=== PATIENT | female | born 1945 | race American Indian/Alaskan Native ===

== ENCOUNTER 2019-05-18 07:39 | Observation (INO) | payer MEDICARE ==
--- NOTE | 2019-05-18 08:01 | Cat Scan Report ---
CT HEAD WITHOUT CONTRAST INDICATION / CLINICAL INFORMATION: neuro deficits <6hrs or sx present upon awakening. Stroke protoco l. TECHNIQUE: Axial imaging performed from the skull apex through the skull base without the use of cont rast. Sagittal and coronal reformatted images. All CT scans at this location are performed using CT dose reduction for ALARA by means of automated exposure control. COMPARISON: None available. FINDINGS: CEREBRAL PARENCHYMA: No significant abnormality. No acute territorial infarct. Mild age appropriate v olume loss is noted. HEMORRHAGE: None. EXTRA-AXIAL SPACES: Normal in size and morphology for the patient's age. VENTRICULAR SYSTEM: Normal in size and morphology for the patient's age. MIDLINE SHIFT OR HERNIATION: None. CEREBELLUM / BRAINSTEM: No significant abnormality. CALVARIUM: No significant abnormality. ORBITS: Normal as visualized. PARANASAL SINUSES / MASTOID AIR CELLS: Normal as visualized. SOFT TISSUES of HEAD: No significant abnormality. ADDITIONAL FINDINGS: None. IMPRESSION: No acute intracranial abnormality. These findings were discussed with Dr. Lane in the emergency department at 0756 hours EST. Signer Name: Home Moon Jr, MD Signed: 05/18/2019 7:56 AM Workstation Name: [id number]
[2019-05-18 08:23] LABS: Basophils # (Auto) 0.1 K/mm3 (0.0-0.1); Eosinophils # (Auto) 0.1 K/mm3 (0.0-0.4); Hematocrit 42.4 % (30.3-42.9); Lymphocytes # (Auto) 1.9 K/mm3 (1.2-5.4); Lymphocytes % (Auto) 31.8 % (13.4-35.0); Mean Corpuscular HGB Conc 33 % (30-34); Mean Corpuscular Volume 82 fl (79-97); Monocytes # (Auto) 0.5 K/mm3 (0.0-0.8); Monocytes % (Auto) 8.4 % (0.0-7.3); Platelet Count 233 K/mm3 (140-440); Red Blood Count 5.16 M/mm3 (3.65-5.03); Red Cell Distribution Width 15.4 % (13.2-15.2)
[2019-05-18] MEDS ORDERED: LORazepam 2 MG/ML VIAL IV ONE ×2 (08:29→09:30)
[2019-05-18 08:37] LABS: INR 0.97 (0.87-1.13)
[2019-05-18 08:39] LABS: Partial Thromboplastin Time 33.2 Sec. (24.2-36.6)
--- NOTE | 2019-05-18 08:59 | Emergency Department Report ---
HPI - General Chief Complaint: Neuro Symptoms/Deficit Time Seen by Provider: 05/18/19 07:45 - HPI HPI: 73-year-old -Irish female presents to the emergency department via EMS from home after the patient woke up this morning altered and agitated. The patient does not have any known past medical history but also does not see a primary care physician and "she never sees doctors." Her daughter is currently at bedside providing information, as did EMS. The patient is usually awake and oriented, AAO x3, conversive, and fully independent. She was this way as of when she went to sleep last night but woke up altered and agitated. She keeps taking her clothes off. She is nonverbal. She does follow some commands but displays some generalized weakness. A code stroke was initiated. ED Past Medical Hx - Past Medical History Previous Medical History?: No - Surgical History Past Surgical History?: No - Social History Smoking Status: Current Every Day Smoker - Medications Home Medications: Home Medications Medication Instructions Recorded Confirmed Last Taken Type No Known Home Medications [No 05/18/19 05/18/19 Unknown History Reported Home Medications] ED Review of Systems ROS: Stated complaint: STROKE CALL Other details as noted in HPI Comment: Unobtainable due to pts medical conditions Physical Exam - Physical Exam Vital Signs: Vital Signs 05/18/19 08:38 Pulse Rate 71 Respiratory 18 Rate Blood Pressure 124/61 [Right] O2 Sat by Pulse 96 Oximetry Physical Exam: GENERAL: Patient is ill-appearing and confused. HENT: Normocephalic. Atraumatic. Patient has moist mucous membranes. EYES: Extraocular motions are intact. Pupils equal reactive to light bilaterally. NECK: Supple. Trachea is midline. CHEST/LUNGS: Clear to auscultation. There is no respiratory distress noted. HEART/CARDIOVASCULAR: Regular. There is no tachycardia. There is no murmur. ABDOMEN: Abdomen is soft, nontender. Patient has normal bowel sounds. There is no abdominal distention. SKIN: Skin is warm and dry. NEURO: Patient is awake but nonverbal. She follows some commands. Withdraws from painful stimuli. No obvious facial asymmetry. MUSCULOSKELETAL: There is no tenderness or deformity. There is no evidence of acute injury. ED Course Vital Signs 05/18/19 08:38 Pulse Rate 71 Respiratory 18 Rate Blood Pressure 124/61 [Right] O2 Sat by Pulse 96 Oximetry - Consultations Consultation #1: The patient was seen by the telemedicine neurologist, Dr. Johnston, immediately after she returned from CT scan of the head without contrast. He agrees that th e patient does not appear to be a TPA candidate as she woke up with the symptoms and there is no last known well time. He has recommended CT angiography of the head and neck to be performed and if there is no sign of any large vessel occlusion, then the patient should be admitted for further metabolic or CVA work-up. 05/18/19 08:59 ED Medical Decision Making - Lab Data Result diagrams: 05/18/19 08:03 05/18/19 09:20 - EKG Data -: EKG Interpreted by De EKG shows normal: sinus rhythm, axis, intervals, QRS complexes, ST-T waves Rate: normal - EKG Data When compared to previous EKG there are: previous EKG unavailable Interpretation: normal EKG - Radiology Data Radiology results: report reviewed CT HEAD WITHOUT CONTRAST INDICATION / CLINICAL INFORMATION: neuro deficits <6hrs or sx present upon awakening. Stroke protocol. TECHNIQUE: Axial imaging performed from the skull apex through the skull base without the use of contrast. Sagittal and coronal reformatted images. All CT scans at this location are performed using CT dose reduction for ALARA by means of automated exposure control. COMPARISON: None available. FINDINGS: CEREBRAL PARENCHYMA: No significant abnormality. No acute territorial infarct. Mild age appropriate volume loss is noted. HEMORRHAGE: None. EXTRA-AXIAL SPACES: Normal in size and morphology for the patient's age. VENTRICULAR SYSTEM: Normal in size and morphology for the patient's age. MIDLINE SHIFT OR HERNIATION: None. CEREBELLUM / BRAINSTEM: No significant abnormality. CALVARIUM: No significant abnormality. ORBITS: Normal as visualized. PARANASAL SINUSES / MASTOID AIR CELLS: Normal as visualized. SOFT TISSUES of HEAD: No significant abnormality. ADDITIONAL FINDINGS: None. IMPRESSION: No acute intracranial abnormality. CT angio head INDICATION / CLINICAL INFORMATION: 73 years Female; CVA. TECHNIQUE: Thin cut axial images obtained through the head during IV bolus contrast administration. Sagittal, coronal, and 3 plane MIP reconstructions performed by the technologist. NASCET type criteria used evaluate stenoses. Automated exposure control utilized for radiation reduction purposes. COMPARISON: None available. FINDINGS: INTERNAL CAROTID ARTERIES: Focal area of narrowing is seen in the anterior genu of the cavernous portion of the right internal carotid artery-borderline hemodynamically significant. Mild narrowing is seen in the carotid canal portions of both internal carotid arteries-not hemodynamically significant Otherwise, no significant narrowing appreciated. VERTEBROBASILAR SYSTEM: No significant narrowing appreciated. DISTAL BRANCHES: Distal branches of the anterior, middle, and posterior cerebral arteries are fairly symmetric in appearance and number. No significant areas of narrowing appreciated. ANEURYSM: None identified. ADDITIONAL FINDINGS: Remainder of the surrounding soft tissues are grossly normal. IMPRESSION: Areas of narrowing identified, as described above. - Medical Decision Making This patient presents to the emergency department as a code stroke. Essentially she was normal when she went to bed and woke up confused, agitated and at times combative. During my initial examination the patient is awake and will follow some commands but is nonverbal and does appear confused. She had a CT scan of the head without contrast that did not show any bleed, shift, mass, ischemia, or any other acute process. Patient was seen by the telemedicine neurologist who agrees that the patient is outside of the TPA window but a CT angiography of the head and neck was recommended. The patient required 2 different doses of Ativan, and a dose of Geodon, in order to get the CT angiography completed. There was some luminal narrowing seen on the CT angiography of the head but no obvious thrombus or large vessel occlusion. The patient's labs have been unremarkable including CBC, metabolic panel, ammonia, TSH, urinalysis to show any etiology of the patient's symptoms. Patient will be admitted to the hospital for further evaluation and treatment and was accepted for admission by the hospitalist, Dr. Garber. - Differential Diagnosis CVA, TIA, hyperammonemia, metabolic encephalopathy Critical Care Time: Yes Critical care time in (mins) excluding proc time.: 35 Critical care attestation.: If time is entered above; I have spent that time in minutes in the direct care of this critically ill patient, excluding procedure time. Due to the immediate potential for life-threatening deterioration due to underlying neurologic and/or metabolic condition, I spent 35 minutes of critical care time with the patient. Critical care time was spent on this patient in doing her initial evaluation, multiple re-evaluations, ordering and interpretation of labs and imaging, d iscussion with the telemedicine neurologist. Critical Care Time: 35 minutes ED Disposition Clinical Impression: CVA (cerebral vascular accident) Qualifiers: CVA mechanism: unspecified Qualified Code(s): I63.9 - Cerebral infarction, unspecified Altered mental status Qualifiers: Altered mental status type: unspecified Qualified Code(s): R41.82 - Altered mental status, unspecified Disposition: DC-09 OP ADMIT IP TO THIS HOSP Is pt being admited?: Yes Condition: Serious Time of Disposition: 14:05
--- NOTE | 2019-05-18 09:15 | Emergency Department Report ---
ED Neuro Deficit HPI - General Chief Complaint: Neuro Symptoms/Deficit Stated Complaint: STROKE CALL Time Seen by Provider: 05/18/19 07:45 Source: EMS Mode of arrival: Stretcher Limitations: Other - History of Present Illness Initial Comments: [facility] Date of Service: 05/18/2019 07:40:17 Impression: RO Acute Ischemic Stroke Comments: The patient was last normal at yesterday per EMS report. She was confused, and ataxic on wakeup. She is aphasic on examination and writhing. Mechanism of Stroke: Possible Thromboembolic Metrics: Last Known Well: 05/17/2019 21:00:00 [facility] Notification Time: 05/18/2019 07:40:17 Arrival Time: 05/18/2019 07:40:17 Stamp Time: 05/18/2019 07:40:17 Time First Login Attempt: 05/18/2019 07:43:10 Video Start Time: 05/18/2019 07:43:10 Symptoms: 73 year old, female NIHSS Start Assessment Time: 05/18/2019 07:43:10 Patient is not a candidate for tPA. Patient was not deemed candidate for tPA thrombolytics because of Last Well Known Above 4.[address] head showed no acute hemorrhage or acute core infarct. Clinical Presentation is Suggestive of Large Vessel Occlusive Disease, Recommendations are as Follows ED Physician notified of diagnostic impression and management plan on 05/18/2019 08:38:26 Our recommendations are outlined below. Recommendations: Activate Stroke Protocol Admission/Order Set Stroke/Telemetry Floor Neuro Checks Bedside Swallow Eval DVT Prophylaxis IV Fluids, Normal Saline Head of Bed Below 30 Degrees Euglycemia and Avoid Hyperthermia (PRN Acetaminophen) Lipid Panel to Be Obtained, if Not Done in the Last Three Months Therapies: Physical Therapy, Occupational Therapy, Speech Therapy Assessment When Applicable Dysphaghia Screen: Swallow Evaluation, Bedside NPO Until Swallow Evaluation History of Present Illness: Patient was brought by EMS for symptoms of 73 year old, female well last night, and curled up in a position, and unable to ambulate and position. She does not use a doctor. No medical condition, she does smoke. BS 151 with EMS. BP is elevated. CT head showed no acute hemorrhage or acute core infarct. Last seen normal was beyond 4.5 hours of presentation. There is no history of hemorrhagic complications or intracranial hemorrhage. There is no history of Recent Anticoagulants. There is no history of recent major surgery. There is no history of recent stroke. Examination: 1A: Level of Consciousness - Alert; keenly responsive + 0 1B: Ask Month and Age - Both Questions Right + 0 1C: Blink Eyes & Squeeze Hands - Performs Both Tasks + 0 2: Test Horizontal Extraocular Movements - Normal + 0 3: Test Visual Ramsey - No Visual Loss + 0 4: Test Facial Palsy (Use Grimace if Obtunded) - Normal symmetry + 0 5A: Test Left Arm Motor Drift - No Drift for 10 Seconds + 0 5B: Test Right Arm Motor Drift - No Drift for 10 Seconds + 0 6A: Test Left Leg Motor Drift - No Drift for 5 Seconds + 0 6B: Test Right Leg Motor Drift - No Drift for 5 Seconds + 0 7: Test Limb Ataxia (FNF/Heel-Peguero) - No Ataxia + 0 8: Test Sensation - Normal; No sensory loss + 0 9: Test Language/Aphasia - Normal; No aphasia + 0 10: Test Dysarthria - Normal + 0 11: Test Extinction/Inattention - No abnormality + 0 NIHSS Score: 0 Patient was informed the Neurology Consult would happen via TeleHealth consult by way of interactive audio and video telecommunications and consented to receiving care in this manner. Due to the immediate potential for life-threatening deterioration due to underlying acute neurologic illness, I spent 35 minutes providing critical care. This time includes time for face to face visit via telemedicine, review of [facility] records, imaging studies and discussion of findings with providers, the patient and/or family. Dr Rajinder Johnston [facility] Case [id number] - Related Data Home Medications: Home Medications Medication Instructions Recorded Confirmed Last Taken No Known Home Medications [No 05/18/19 05/18/19 Unknown Reported Home Medications] Allergies/Adverse Reactions: Allergies Allergy/AdvReac Type Severity Reaction Status Date / Time No Known Allergies Allergy Unverified 05/18/19 07:43 ED Review of Systems ROS: Stated complaint: STROKE CALL Other details as noted in HPI ED Past Medical Hx - Past Medical History Previous Medical History?: No - Surgical History Past Surgical History?: No - Social History Smoking Status: Current Every Day Smoker - Medications Home Medications: Home Medications Medication Instructions Recorded Confirmed Last Taken Type No Known Home Medications [No 05/18/19 05/18/19 Unknown History Reported Home Medications] ED Neuro Physical Exam - General Limitations: Other ED Course Vital Signs 05/18/19 08:38 Pulse Rate 71 Respiratory 18 Rate Blood Pressure 124/61 [Right] O2 Sat by Pulse 96 Oximetry - Lab Data Result diagrams: 05/18/19 08:03 Lab Results 05/18/19 05/18/19 05/18/19 Range/Units 08:02 08:02 08:02 WBC (4.5-11.0) K/mm3 RBC (3.65-5.03) M/mm3 Hgb (10.1-14.3) gm/dl Hct (30.3-42.9) % MCV (79-97) fl MCH (28-32) pg MCHC (30-34) % RDW (13.2-15.2) % Plt Count (140-440) K/mm3 Lymph % (Auto) (13.4-35.0) % [place] % (Auto) (0.0-7.3) % Eos % (Auto) (0.0-4.3) % Baso % (Auto) (0.0-1.8) % Lymph # (1.2-5.4) K/mm3 [place] # (0.0-0.8) K/mm3 Eos # (0.0-0.4) K/mm3 Baso # (0.0-0.1) K/mm3 Seg Neutrophils % (40.0-70.0) % Seg Neutrophils # (1.8-7.7) K/mm3 PT (12.2-14.9) Sec. INR (0.87-1.13) APTT (24.2-36.6) Sec. Thrombin Time (15.1-19.6) Sec. Lactic Acid 1.90 (0.7-2.0) mmol/L Ammonia 24.0 L (25-60) umol/L TSH 3.770 (0.270-4.200) mlU/mL Plasma/Serum Alcohol (0-0.07) % 05/18/19 05/18/19 05/18/19 Range/Units 08:02 08:03 08:03 WBC 6.0 (4.5-11.0) K/mm3 RBC 5.16 H (3.65-5.03) M/mm3 Hgb 14.0 (10.1-14.3) gm/dl Hct 42.4 (30.3-42.9) % MCV 82 (79-97) fl MCH 27 L (28-32) pg MCHC 33 (30-34) % RDW 15.4 H (13.2-15.2) % Plt Count 233 (140-440) K/mm3 Lymph % (Auto) 31.8 (13.4-35.0) % [place] % (Auto) 8.4 H (0.0-7.3) % Eos % (Auto) 2.0 (0.0-4.3) % Baso % (Auto) 1.0 (0.0-1.8) % Lymph # 1.9 (1.2-5.4) K/mm3 [place]ake # 0.5 (0.0-0.8) K/mm3 Eos # 0.1 (0.0-0.4) K/mm3 Baso # 0.1 (0.0-0.1) K/mm3 Seg Neutrophils % 56.8 (40.0-70.0) % Seg Neutrophils # 3.4 (1.8-7.7) K/mm3 PT 13.0 (12.2-14.9) Sec. INR 0.97 (0.87-1.13) APTT 33.2 (24.2-36.6) Sec. Thrombin Time (15.1-19.6) Sec. Lactic Acid (0.7-2.0) mmol/L Ammonia (25-60) umol/L TSH (0.270-4.200) mlU/mL Plasma/Serum Alcohol < 0.01 (0-0.07) % 05/18/19 Range/Units 08:03 WBC (4.5-11.0) K/mm3 RBC (3.65-5.03) M/mm3 Hgb (10.1-14.3) gm/dl Hct (30.3-42.9) % MCV (79-97) fl MCH (28-32) pg MCHC (30-34) % RDW (13.2-15.2) % Plt Count (140-440) K/mm3 Lymph % (Auto) (13.4-35.0) % [place] % (Auto) (0.0-7.3) % Eos % (Auto) (0.0-4.3) % Baso % (Auto) (0.0-1.8) % Lymph # (1.2-5.4) K/mm3 [place] # (0.0-0.8) K/mm3 Eos # (0.0-0.4) K/mm3 Baso # (0.0-0.1) K/mm3 Seg Neutrophils % (40.0-70.0) % Seg Neutrophils # (1.8-7.7) K/mm3 PT (12.2-14.9) Sec. INR (0.87-1.13) APTT (24.2-36.6) Sec. Thrombin Time 17.4 (15.1-19.6) Sec. Lactic Acid (0.7-2.0) mmol/L Ammonia (25-60) umol/L TSH (0.270-4.200) mlU/mL Plasma/Serum Alcohol (0-0.07) % Critical care attestation.: If time is entered above; I have spent that time in minutes in the direct care of this critically ill patient, excluding procedure time. ED Disposition Condition: Stable
[2019-05-18] MEDS ORDERED: ZIPRASIDONE MESYLATE 20 MG VIAL IM ONE (09:37)
[2019-05-18] MEDS ORDERED: WATER FOR INJ Sterile (PF) 10 ML ONE (09:55)
[2019-05-18 10:34] LABS: Bilirubin,Urine NEG (Negative); Blood,Urine NEG (Negative); Color,Urine Yellow (Yellow); Mucus,Urine FEW /HPF; Protein,Urine <15 mg/dL mg/dL (Negative); Urobilinogen,Urine < 2.0 mg/dL (<2.0); WBC,Urine < 1.0 /HPF (0.0-6.0)
[2019-05-18 10:41] LABS: Amphetamine Screen,Urine PRESUMPTIVE NEGATIVE; Cocaine Screen,Urine PRESUMPTIVE NEGATIVE; Methadone Screen,Urine PRESUMPTIVE NEGATIVE; Opiate Screen,Urine PRESUMPTIVE NEGATIVE
[2019-05-18 10:48] LABS: BUN/Creatinine Ratio 19; Blood Urea Nitrogen 15 mg/dL (7-17); Calcium 9.3 mg/dL (8.4-10.2); Hemolysis Index 52
[2019-05-18 10:55] LABS: Benzodiazepines Screen,Urine PRESUMPTIVE POSITIVE; Cannabinoid Screen,Urine PRESUMPTIVE POSITIVE
[2019-05-18 10:58] LABS: Alanine Aminotransferase 12 units/L (7-56); Albumin 3.7 g/dL (3.9-5)
[2019-05-18 10:59] LABS: Bilirubin,Direct < 0.2 mg/dL (0-0.2)
--- NOTE | 2019-05-18 12:19 | Cat Scan Report ---
CT angio head INDICATION / CLINICAL INFORMATION: 73 years Female; CVA. TECHNIQUE: Thin cut axial images obtained through the head during IV bolus contrast administration. S agittal, coronal, and 3 plane MIP reconstructions performed by the technologist. NASCET type criteria used evaluate stenoses. Automated exposure control utilized for radiation reduction purposes. COMPARISON: None available. FINDINGS: INTERNAL CAROTID ARTERIES: Focal area of narrowing is seen in the anterior genu of the cavernous port ion of the right internal carotid artery-borderline hemodynamically significant. Mild narrowing is se en in the carotid canal portions of both internal carotid arteries-not hemodynamically significant Ot herwise, no significant narrowing appreciated. VERTEBROBASILAR SYSTEM: No significant narrowing appreciated. DISTAL BRANCHES: Distal branches of the anterior, middle, and posterior cerebral arteries are fairly symmetric in appearance and number. No significant areas of narrowing appreciated. ANEURYSM: None identified. ADDITIONAL FINDINGS: Remainder of the surrounding soft tissues are grossly normal. IMPRESSION: Areas of narrowing identified, as described above. Signer Name: Tonio Monroe MD, III Signed: 05/18/2019 12:15 PM Workstation Name: [id number]
--- NOTE | 2019-05-18 12:29 | History and Physical Report ---
History of Present Illness Chief complaint: She is confused and not talking right and just not acting like herself History of present illness: 73-year-old female with nicotine dependence, malnutrition presents to ED for evaluation. Patient is lethargic and nonverbal and is unable to provide history. Patient history provided by ED staff, EMS and patient daughter who is at bedside during exam and interview. As per patient daughter the patient was in her usual state of health at bedtime at around 2100 hrs. Patient awoke this morning around 0800 hrs. with slurred speech, decreased verbalization, generalized weakness, unable to ambulate, confused, agitated and attempting to take off her clothes. EMS was notified and upon arrival the patient was found to be in distress with a neurologic deficit. A code stroke was called and the patient was transported to [facility] for further evaluation and care. Patient seen a nd evaluated in the emergency department. Lab and imaging studies reviewed. Patient found to have a neurologic deficit and initiated on CVA protocol due to patient having symptoms consistent with CVA. Tele-neurology consulted in ED but the patient is deemed not a candidate for TPA. Neurology consulted. Patient admitted to [facility] unit for medical stabilization due to increased risk of decompensation. Patient initiated on CVA protocol. Patient is lethargic at the time of my exam but has a positive gag reflex and is able to protect her airway. No prior admission for review. No medication listed at time of admission for reconciliation. No reports of fever, chills, chest pain, palpitations, trauma, productive cough, recent ill contacts, or skin rash. Past History Past Medical History: No medical history, other (Reviewed) Past Surgical History: No surgical history, Other (Reviewed) Social history: single, lives with family, smoking. denies: alcohol abuse, prescription drug abuse Family history: hypertension Medications and Allergies Allergies Allergy/AdvReac Type Severity Reaction Status Date / Time No Known Allergies Allergy Verified 05/18/19 10:02 Home Medications Medication Instructions Recorded Confirmed Last Taken Type No Known Home Medications [No 05/18/19 05/18/19 Unknown History Reported Home Medications] Review of Systems ROS unobtainable: due to mental status Exam - Constitutional Vitals: Temp Pulse Resp BP Pulse Ox 98.4 F 74 14 139/80 96 05/18/19 10:00 05/18/19 11:30 05/18/19 11:30 05/18/19 11:30 05/18/19 11:30 General appearance: Present: mild distress - EENT Eyes: Present: PERRL ENT: hearing intact, clear oral mucosa - Neck Neck: Present: supple, normal ROM - Respiratory Respiratory: bilateral: CTA - Cardiovascular Heart Sounds: Present: S1 & S2. Absent: rub, click - Extremities Extremities: pulses symmetrical, No edema Peripheral Pulses: within normal limits - Abdominal General gastrointestinal: Present: soft, non-tender, non-distended, normal bowel sounds Female genitourinary: Present: normal - Integumentary Integumentary: Present: clear, warm, dry - Musculoskeletal Musculoskeletal: generalized weakness - Psychiatric Psychiatric: no appropriate mood/affect, no intact judgment & insight, no memory intact - Neurologic Neurologic: moves all extremities, no gait normal Results - Labs CBC & Chem 7: 05/18/19 08:03 05/18/19 09:20 Labs: Abnormal lab results 05/18/19 05/18/19 05/18/19 Range/Units 07:48 08:02 08:02 RBC (3.65-5.03) M/mm3 MCH (28-32) pg RDW (13.2-15.2) % [place] % (Auto) (0.0-7.3) % Carbon Dioxide (22-30) mmol/L Glucose (65-100) mg/dL POC Glucose 111 H (70-105) Ammonia 24.0 L (25-60) umol/L Albumin 3.7 L (3.9-5) g/dL 05/18/19 05/18/19 Range/Units 08:03 09:20 RBC 5.16 H (3.65-5.03) M/mm3 MCH 27 L (28-32) pg RDW 15.4 H (13.2-15.2) % [place] % (Auto) 8.4 H (0.0-7.3) % Carbon Dioxide 19 L (22-30) mmol/L Glucose 122 H (65-100) mg/dL POC Glucose (70-105) Ammonia (25-60) umol/L Albumin (3.9-5) g/dL Assessment and Plan - Patient Problems (1) CVA (cerebral vascular accident) Current Visit: Yes Status: Acute Qualifiers: CVA mechanism: unspecified Qualified Code(s): I63.9 - Cerebral infarction, unspecified Plan to address problem: Stroke protocol: Admit to [facility] unit, CT head, tele-neurology consulted in ED, neurology consulted, physical therapy, Occupational Therapy, speech therapy, antiplatelet therapy, lipid panel, statin therapy, neuro check, fall precautions, seizure precautions. Monitor blood pressure every shift, permissive hypertension overnight. (2) Encephalopathy, metabolic Current Visit: Yes Status: Acute Plan to address problem: CT head, neuro check, seizure precautions, aspiration precautions, thyroid panel, BMP, urine drug screen. (3) Advance care planning Current Visit: Yes Status: Acute Plan to address problem: Patient is full code, disease education conducted, patient family acknowledges understanding and agreement with care plan, +30 minutes, case management consult placed for discharge planning (4) DVT prophylaxis Current Visit: Yes Status: Acute Plan to address problem: SCD to bilateral lower extremities while in bed, prophylactic heparin
[2019-05-18] MEDS ORDERED: ACETAMINOPHEN 325 MG TAB PO PRN (12:30)
[2019-05-18] MEDS ORDERED: PROMETHAZINE 25 MG RECT SUPP PR PRN (12:30)
[2019-05-18] MEDS ORDERED: METOCLOPRAMIDE 10 MG TAB PO PRN (12:30)
[2019-05-18] MEDS ORDERED: ONDANSETRON 4 MG/2 ML INJ IV PRN (12:30)
[2019-05-18] MEDS ORDERED: MAGNESIUM HYDROXIDE (MOM) ORAL LIQD UDC PO PRN (12:30)
--- NOTE | 2019-05-18 12:54 | Cat Scan Report ---
CTA NECK WITH CONTRAST HISTORY: Neuro deficits COMPARISON: None. TECHNIQUE: Routine CTA of the neck was performed. 3-D/MIP reformats were postprocessed. Percentage s tenosis is determined by direct quantitative measurements of diseased internal carotid artery diamete r compared with normal distal internal carotid artery reference segments or by criteria similar to NA SCET where applicable.All CT scans at this location are performed using CT dose reduction for ALARA b y means of automated exposure control CONTRAST: 100 ml of Omnipaque 300 FINDINGS: Aortic arch: No significant abnormality. Cervical vertebral arteries: No significant abnormality. Common carotid arteries: No significant abnormality. Carotid bifurcations: Nonstenotic calcified atheromatous plaque is seen in the proximal right interna l carotid artery. Focal calcified atheromatous plaque is seen at the origin of left internal carotid artery with very minimal narrowing. Cervical internal carotid arteries: No significant abnormality. Additional findings: None. IMPRESSION: 1. No significant abnormality. Signer Name: Saba Patel MD Signed: 05/18/2019 12:50 PM Workstation Name: [id number]
[2019-05-18] MEDS: HEPARIN 5,000 UNIT/1 ML VIAL SUB-Q SCH (21:57)
[2019-05-19 06:36] LABS: Chol/HDL Ratio 3.14 %
[2019-05-19] MEDS ORDERED: ASPIRIN 325 MG TAB PO SCH (10:00)
--- NOTE | 2019-05-19 10:15 | Magnetic Resonance Report ---
MRI BRAIN WITHOUT CONTRAST INDICATION / CLINICAL INFORMATION: Stroke protocol. Cerebrovascular accident. TECHNIQUE: Multiplanar, multisequence MR images of the brain were obtained. COMPARISON: Head CT from 05/18/2019 FINDINGS: BRAIN / INTRACRANIAL CONTENTS: Dilatation of cortical sulci is noted at the vertex of both cerebral h emispheres consistent with mild age-appropriate parenchymal volume loss. Ventricles are normal in siz e and configuration. There is no mass effect. No evidence of intracranial hemorrhage or extra-axial f luid collection is seen. No areas of abnormal brain parenchymal signal intensity are identified. Ther e is little in the way of age-related involutional change in this 73 year-old individual. There is no indication of remote cortical infarction. Diffusion weighted scans are negative. There is no indicat ion of acute ischemic injury. The brainstem and cerebellum have an unremarkable appearance. CRANIOCERVICAL JUNCTION: No abnormalities are identified at the craniocervical junction. VASCULAR FLOW-VOIDS: Normal flow-voids are present within the major intracranial vessels. ORBITS: The orbits have an unremarkable appearance. SINUSES / MASTOIDS: There is no indication of inflammatory disease in the paranasal sinuses or mastoi d air cells. ADDITIONAL FINDINGS: None. IMPRESSION: 1. No significant abnormality on MRI brain. 2. No indication of recent infarction, hemorrhage or mass. Signer Name: Kingsley Abad MD Signed: 05/19/2019 10:10 AM Workstation Name: [id number]
[2019-05-19] MEDS: HEPARIN 5,000 UNIT/1 ML VIAL SUB-Q SCH (11:15)
--- NOTE | 2019-05-19 12:13 | Vascular Lab Report ---
TECHNICAL DATA: Imaging was performed from the base of the neck to the skull base using duplex sonography and color-f low imaging with emphasis on the carotid and vertebral arterial systems. RIGHT CAROTID ARTERY: The right internal carotid artery, right external carotid, and right common carotid artery all well i eduardo and patent. Mild atherosclerotic plaque present at the carotid bifurcation. Right common carotid artery peak systolic velocity 56.57cm/sec Right internal carotid artery peak systolic velocity 75.1 cm/s Right internal carotid artery end diastolic velocity 20.17 cm/sec. Right internal carotid artery/right common carotid artery ratio 1.33 Vertebral artery flow is antegrade. LEFT CAROTID ARTERY The left internal carotid artery, left external carotid, and left common carotid artery all well imag ed and patent. Mild atherosclerotic plaque present at the carotid bifurcation. Left common carotid artery peak systolic velocity 58.7 cm/sec Left internal carotid artery peak systolic velocity 100.6 cm/s Left internal carotid artery end diastolic velocity 31.6 cm/s Left internal carotid artery/right common carotid artery ratio 1.71 Normal antegrade flow of the vertebral arteries. Please see worksheet for all velocities. IMPRESSION: 1. Sonographic NASCET Index This study proposed the incorporation of distal ICA flow velocity information on the conventional car otid Doppler study improving the diagnostic accuracy of PSV 1. Internal carotid arteries demonstrate 16-49% stenosis: * pansystolic spectral broadening with a PSV <125 cm/s 2. Normal common carotid arteries. 3. Normal external carotid arteries. 4. Antegrade flow both vertebral arteries. Sonographic NASCET Index This study proposed the incorporation of distal ICA flow velocity information on the conventional car otid Doppler study improving the diagnostic accuracy of PSV 1. * <15% stenosis: * deceleration spectral broadening with a peak systolic velocity (PSV) <125 cm/s * 16-49% stenosis: * pansystolic spectral broadening with a PSV <125 cm/s * 50-69% stenosis: * pansystolic spectral broadening with a PSV of >125 cm/s * and * end diastolic velocity (EDV) <110 cm/s or ICA/CCA PSV ratio >2 but <4 * 70-79% stenosis: * pansystolic spectral broadening with PSV >270 cm/s * or * EDV >110 cm/s * or * ICA/CCA PSV ratio >4 * 80-99% stenosis: EDV >140 cm/s * complete occlusion: no flow; terminal thump Signer Name: Himanshu Okeefe MD Signed: 05/19/2019 12:08 PM Workstation Name: [id number]
--- NOTE | 2019-05-19 14:18 | Discharge Summary ---
Providers - Providers Date of Admission: 05/18/19 12:30 Date of discharge: 05/19/19 Attending physician: XAVIER MO 05/18/19 12:30 Occupational Therapy Evaluate and Treat [CONS] Routine Comment: Reason For Exam: Neuro deficits Physical Therapy Evaluation and Treat [CONS] Routine Comment: Reason For Exam: Neuro deficits 05/18/19 12:44 Speech Therapy Evaluation and Treat [CONS] Routine Reason For Exam: swallow eval 05/18/19 17:54 Consult to Case Management [CONS] Routine Services Needed at Discharge: Other Notified:: In a.m. Additional Physician Instructions: Discharge planning/placement 05/19/19 08:22 Consult to Physician [CONS] Routine Comment: noted/ dashawn Consulting Provider: TOBY HOWE Physician Instructions: Reason For Exam: stroke protocol/?CVA/TIA Primary care physician: [employer] Hospitalization Condition: Serious Disposition: DC/[place]-06 HOME [facility] Time spent for discharge: 32 min Core Measure Documentation - Palliative Care Palliative Care/ Comfort Measures: Not Applicable - Core Measures Any of the following diagnoses?: none Exam - Constitutional Vitals: Temp Pulse Resp BP Pulse Ox 98.7 F 88 18 149/89 98 05/19/19 11:00 05/19/19 11:00 05/19/19 11:00 05/19/19 11:00 05/19/19 11:00 General appearance: Present: no acute distress, well-nourished - EENT Eyes: Present: PERRL, EOM intact - Neck Neck: Present: supple, normal ROM - Respiratory Respiratory effort: normal Respiratory: bilateral: diminished, negative: rales, rhonchi, wheezing - Cardiovascular Rhythm: regular Heart Sounds: Present: S1 & S2 - Extremities Extremities: no ischemia, No edema - Abdominal General gastrointestinal: Present: soft, non-tender, non-distended, normal bowel sounds - Integumentary Integumentary: Present: clear, warm - Musculoskeletal Musculoskeletal: strength equal bilaterally, generalized weakness - Psychiatric Psychiatric: appropriate mood/affect, cooperative - Neurologic Neurologic: CNII-XII intact, moves all extremities Plan Activity: advance as tolerated, fall precautions Diet: low cholesterol Special Instructions: smoking cessation Additional Instructions: Advised outpatient psychologist/psychiatrist evaluation if needed Follow up with: PRIMARY CARE,MD [Primary Care Provider] - 7 Days Prescriptions: Nicotine [Habitrol] 14 mg TD DAILY #30 patch Aspirin EC [Halfprin EC] 81 mg PO QDAY #30 tablet. AtorvaSTATin [Lipitor] 40 mg PO QHS #30 tablet
--- NOTE | 2019-05-19 15:02 | Consultation ---
History of Present Illness Consult date: 05/19/19 Reason for Consult: Altered mental status Chief complaint: Altered mental status History of present illness: Patient is a 73 y/o woman w/ no previous known medical history. Patient has reportedly not seen a physician in a long time. She p/w altered mental status, which was first noted yesterday after patient woke up at about 7:30am. She reportedly woke up 15-30 minutes earlier to iron her sons clothes, and was not noted to be confused at that time, however she is uncertain of the exact events as she does not remember clearly what happened. Patient was then noted by her daughter to be confused, and was brought to [facility] for further evaluation. Patient was reportedly agitated and taking off her clothes, per daughter's account of events. Patient notes that she has not been eating much lately, and is uncertain if she slept much the not prior to the episode of confusion. Her daughter notes that the patient's mother one year ago, and that the patient has been thinking about this quite a lot recently, as the one year anniversary of her mother's is arriving. Patient acknowledges that she has been feeling some depressed recently, and even more-so as the anniversary of her mother's was approaching. Patient endorses that she does smoke marijuana, and also smokes cigarettes. Today, patient is now completely back to her baseline of mental status. Past History Past Medical History: No medical history, other (Reviewed) Past Surgical History: No surgical history, Other (Reviewed) Social history: single, lives with family, smoking, other (marijuana). denies: alcohol abuse, prescription drug abuse Family history: hypertension Medications and Allergies Allergies Allergy/AdvReac Type Severity Reaction Status Date / Time No Known Allergies Allergy Verified 05/18/19 10:02 Home Medications Medication Instructions Recorded Confirmed Last Taken Type Aspirin EC [Halfprin EC] 81 mg PO QDAY #30 tablet. 05/19/19 Unknown Rx AtorvaSTATin [Lipitor] 40 mg PO QHS #30 tablet 05/19/19 Unknown Rx Nicotine [Habitrol] 14 mg TD DAILY #30 patch 05/19/19 Unknown Rx Active Meds: Active Medications Acetaminophen (Tylenol) 650 mg PO Q4H PRN PRN Reason: Pain, Mild (1-3) Aspirin (Aspirin) 325 mg PO QDAY GISELE Last Admin: 05/19/19 11:15 Dose: 325 mg Documented by: Atorvastatin Calcium (Lipitor) 40 mg PO QHS [facility] Last Admin: 05/18/19 22:00 Dose: Not Given Documented by: Bisacodyl (Dulcolax) 10 mg AL QDAY PRN PRN Reason: Constipation Heparin Sodium (Porcine) (Heparin) 5,000 unit SUB-Q Q12HR [facility] Last Admin: 05/19/19 11:15 Dose: 5,000 unit Documented by: Magnesium Hydroxide (Milk Of Magnesia) 30 ml PO Q4H PRN PRN Reason: Constipation Metoclopramide HCl (Reglan) 10 mg PO Q6H PRN PRN Reason: Nausea And Vomiting Ondansetron HCl (Zofran) 4 mg IV Q8H PRN PRN Reason: Nausea And Vomiting Promethazine HCl (Phenergan) 25 mg AL Q6H PRN PRN Reason: Nausea And Vomiting Sodium Chloride (Sodium Chloride Flush Syringe 10 Ml) 10 ml IV PRN PRN PRN Reason: LINE FLUSH Review of Systems All systems: negative Neurological: change in mentation Physical Examination - Vital Signs Vital Signs: Vital Signs Pulse Ox 98 05/18/19 07:52 - Physical Exam Narrative exam: Patient is alert, awake, oriented x4, follows complex commands. No dysarthria or aphasia noted. PERRL, EOMI, VFF, tongue midline, bilaterally intact to LT, no facial weakness noted. 5/5 strength in all extremities. Bilaterally intact light touch. Bilaterally intact to FTN and HTS. 2+ reflexes throughout. - Constitutional General appearance: comfortable - EENT EENT: Present: ATNC, PERRL, mucous membranes moist, hearing intact, vision intact - Respiratory Respiratory: Present: lungs clear, normal breath sounds - Cardiovascular Cardiovascular: Present: regular rate, normal S1, normal S2 Extremities: Present: no clubbing, cyanosis, no inflammation - Gastrointestinal Gastrointestinal: Present: normoactive bowel sounds, soft, non-tender - Integumentary Integumentary: Present: normal - Musculoskeletal Musculoskeletal: Present: no fluid collection, no pain - Psychiatric Psychiatric: Present: mood/affect appropriate Results - Laboratory Findings CBC and BMP: 05/18/19 08:03 05/18/19 09:20 Abnormal Lab Findings: Abnormal Labs 05/18/19 05/18/19 05/18/19 07:48 08:02 08:02 RBC MCH RDW Darke % (Auto) Carbon Dioxide Glucose POC Glucose 111 H Ammonia 24.0 L Albumin 3.7 L Cholesterol LDL Cholesterol Direct HDL Cholesterol 05/18/19 05/18/19 05/19/19 08:03 09:20 05:46 RBC 5.16 H MCH 27 L RDW 15.4 H Darke % (Auto) 8.4 H Carbon Dioxide 19 L Glucose 122 H POC Glucose Ammonia Albumin Cholesterol 245 H LDL Cholesterol Direct 153 H HDL Cholesterol 78 H Assessment and Plan Patient is a 73 y/o woman w/ no previous known medical history, who p/w altered mental status. According to the patient;s clinical findings, she has likely had an episode of psychosis. In support of this diagnosis, she has been feeling depressed as the anniversary of her mother's is approaching, she has not been eating much recently, and further the patient smokes marijuana. MRI brain and other workup have not indicated a separate likely etiology of her symptoms. Plan: 1. Altered mental status: - Likely brief episode of psychosis - Patient now returned to baseline of mental status today. - Patient endorses feeling depressed and not eating much recently, as the 1-year anniversary of her mother's is approaching. - MRI brain: no acute abnormality. - CT head: no acute abnormality: - CTA head/neck: no significant stenosis - Echo: EF 50-55%, LA normal size, bubble study negative. - UDS: positive for marijuana and benzodizepines. Counselled patient to stop marijuana use. - UA: not indicative of UTI - Recommend psychiatry consult or outpatient follow up for further management of depression and possible psychosis. Patient agreed to this. 2. Elevated BP: - Patient likely has previously undiagnosed HTN - Further management per primary team. - Will sign off. Please call with any questions. Thank you for allowing me to take part in the care of this patient. Ayad Reyes MD Neurology
[2019-05-19 16:08] VITALS: BP 132/84
== END 2019-05-19 16:55 | disposition home health service (06) ==
LOC: ED 07:39 → 2B-ACE 12:30
PROVIDERS: ADMIT Internal Medicine; ATTEND Internal Medicine
DX: I63.9 Cerebral infarction, unspecified (principal); G93.41 Metabolic encephalopathy; E46 Unspecified protein-calorie malnutrition; F17.200 Nicotine dependence, unspecified, uncomplicated; Z68.21 Body mass index [BMI] 21.0-21.9, adult
CPT/HCPCS: 36415; 70450; 70496; 70498; 70551; 80048; 80061; 80076; 80307; 81001; 82140; 82962; 84443; 84484; 85025; 85610; 85670; 85730; 92610; 93005; 93010; 93306; 93880; 96372; 96374; 96376; 97112; 97116; 97162; 99291; 99406; G0378; J1644; J2060; J3486; Q9967; 80320; G0480